=== PATIENT | male | born 2000 | race Caucasian/White ===

== ENCOUNTER 2019-09-09 13:22 | Emergency (ER) | payer OTHER ==
[2019-09-09 13:56] VITALS: BP 119/58
--- NOTE | 2019-09-09 14:12 | UC ---
Abdominal Pain Male HPI - HPI Summary HPI Summary: Left side abdomen pain and lower ribs pain for 2 months worsening now---no nausea,vomiting diarrhea or constipation,, nothing seems to make it better or worses, no injury---also has had years of neck and back pain - History of Current Complaint Chief Complaint: UCGeneralIllness Stated Complaint: LEFT SIDE ABD PAIN Time Seen by Provider: 09/09/19 14:09 Hx Obtained From: Patient Onset/Duration: Gradual Onset, Lasting Weeks - 8, Still Present Timing: Intermittent Episodes Lasting: - hours Pain Intensity: 3 Pain Scale Used: 0-10 Numeric Location: Discrete At: LUQ Radiates: No Character: Aching, Sharp Aggravating Factor(s): Nothing Alleviating Factor(s): Spontaneous Resolution Associated Signs And Symptoms: Positive: Negative - Allergies/Home Medications Allergies/Adverse Reactions: Allergies Allergy/AdvReac Type Severity Reaction Status Date / Time No Known Allergies Allergy Verified 09/09/19 13:35 Home Medications: Home Medications Dicyclomine CAP* [Bentyl CAP*] 10 mg PO TID PRN #15 cap 09/09/19 [Rx] Simethicone TAB* [Mylicon TAB*] 125 mg PO ACHS PRN #60 tab.chew 09/09/19 [Rx] PMH/Surg Hx/FS Hx/Imm Hx Previously Healthy: Yes - Surgical History Surgical History: None - Family History Known Family History: Positive: Other - mother has herniated discs - Social History Occupation: Unemployed - laid off from [employer] due to [employer] Lives: With Family Alcohol Use: None Substance Use Type: None Smoking Status (MU): Current Every Day Smoker Type: eCigarettes Amount Used/How Often: vapes daily Review of Systems All Other Systems Reviewed And Are Negative: Yes Constitutional: Positive: Negative Skin: Positive: Negative Eyes: Positive: Negative ENT: Positive: Negative Respiratory: Positive: Negative Cardiovascular: Positive: Negative Gastrointestinal: Positive: Abdominal Pain - luq pain Genitourinary: Positive: Negative Motor: Positive: Negative Neurovascular: Positive: Negative Musculoskeletal: Positive: Arthralgia - left lower rib pain with palpation=== also mid low back pain (For years) Neurological/Mental Status: Positive: Negative Psychological: Positive: Negative Is Patient Immunocompromised?: No Physical Exam Triage Information Reviewed: Yes Appearance: Well-Appearing, No Pain Distress, Well-Nourished Vital Signs: Initial Vital Signs Temp 98.9 F 09/09/19 13:36 Pulse 81 09/09/19 13:36 Resp 16 09/09/19 13:36 BP 119/58 09/09/19 13:36 Pulse Ox 100 09/09/19 13:36 Vital Signs Reviewed: Yes Eye Exam: Normal Eyes: Positive: Conjunctiva Clear ENT: Positive: Normal ENT inspection, Hearing grossly normal. Negative: Trismus , Muffled voice, Hoarse voice Neck exam: Normal Neck: Positive: Supple, Nontender, No Lymphadenopathy Respiratory Exam: Normal Respiratory: Positive: Chest non-tender, Lungs clear, Normal breath sounds, No respiratory distress, No accessory muscle use Cardiovascular Exam: Normal Cardiovascular: Positive: RRR, No Murmur, Pulses Normal, Brisk Capillary Refill Abdominal Exam: Other Abdomen Description: Positive: Other: - tender LUQ. Negative: CVA Tenderness (R ), CVA Tenderness (L), Distended, Guarding, McBurney's Point Tenderness, Peritoneal Signs, Pulsatile Mass Bowel Sounds: Positive: Present Musculoskeletal Exam: Normal Musculoskeletal: Positive: Strength Intact, ROM Intact, No Edema Neurological Exam: Normal Neurological: Positive: Alert, Muscle Tone Normal Psychological Exam: Normal Skin Exam: Normal Diagnostics - Laboratory Lab Results: urine--negative except trace protein - Radiology No standard instances Radiology Interpretation Completed By: Radiologist - negative Abd Pain Male Course/Dx - Course Course Of Treatment: back and core strengthening exercise, Bentyl / simethicone for gas and abdomen cramping---referral for pcp - Differential Dx/Clinical Impression Provider Diagnosis: Back pain, Pain in the abdomen Discharge ED - Sign-Out/Discharge Documenting (check all that apply): Patient Departure All imaging exams completed and their final reports reviewed: Yes - Discharge Plan Condition: Stable Disposition: HOME Prescriptions: Dicyclomine CAP* [Bentyl CAP*] 10 mg PO TID PRN #15 cap PRN Reason: Abdomen pain Simethicone TAB* [Mylicon TAB*] 125 mg PO ACHS PRN #60 tab.chew PRN Reason: Abdomen pain Patient Education Materials: Gas and Bloating (ED), Abdominal Pain (ED), Core Strengthening Exercises (GEN), Lower Back Exercises (ED) Referrals: [facility] [Outside] - 2 Weeks [facility] [facility] [Outside] - 2 Weeks - Billing Disposition and Condition Condition: STABLE Disposition: Home
== END 2019-09-09 15:10 | disposition home or self-care (01) ==
LOC: UCCORT 13:22
DX: R10.12 Left upper quadrant pain (principal); M54.5 Low back pain; M54.2 Cervicalgia; F17.290 Nicotine dependence, other tobacco product, uncomplicated
CPT/HCPCS: 81003; 99202; G0463